=== PATIENT | female | born 1960 | race Caucasian/White ===

== ENCOUNTER 2017-04-17 23:45 | Emergency (ER) | payer BC ==
[~2017-04-17] VITALS: Ht 170.2 cm; Wt 98.4 kg
[~2017-04-17 23:45] MED LIST: PRILOSEC40 MG PO; ZIAC 5/6.251 TABLET PO; ZOCOR20 MG PO; ZYRTEC10 M2 PO
[2017-04-18 02:46] VITALS: BP 144/93
== END 2017-04-18 02:51 | disposition home or self-care (01) ==
LOC: EME 23:45
PROC: 0HQ0XZZ Repair Scalp Skin, External Approach (ICD-10-PCS; principal; 2017-04-18)
PROC: 3E0234Z Introduction of Serum, Toxoid and Vaccine into Muscle, Percutaneous Approach (ICD-10-PCS; 2017-04-18)
DX: S01.01XA Laceration without foreign body of scalp, initial encounter (principal); W18.09XA Striking against other object with subsequent fall, initial encounter; Z23 Encounter for immunization; K21.9 Gastro-esophageal reflux disease without esophagitis; I10 Essential (primary) hypertension; Z91.040 Latex allergy status; Z88.5 Allergy status to narcotic agent; Z88.8 Allergy status to other drugs, medicaments and biological substances
CPT/HCPCS: 99281; 99283